=== PATIENT | male | born 1955 | race Hispanic/Latino ===

== ENCOUNTER → 2025-09-26 | Outpatient (CLI) | payer OTHER, MEDICARE ==
--- NOTE | 2025-09-26 16:32 | HMCIMG ---
STUDY: X-RAY OF THE ABDOMEN, 1 VIEW HISTORY: Diarrhea. TECHNIQUE: A single supine frontal view of the abdomen is submitted for interpretation. COMPARISON: None provided. FINDINGS: Bowel gas pattern: Non-specific, nonobstructive bowel gas pattern with fecal matter present throughout the large bowel. No abnormal bowel loop dilatation is described. Bones and joints: Mild degenerative changes are noted in the visualized spine. No acute osseous abnormality is identified on this limited abdominal view. Soft tissues: Visualized abdominal soft tissues are unremarkable within the limits of this examination. IMPRESSION: * Non-specific, nonobstructive bowel gas pattern with fecal loading in the large bowel, which may correlate with slowed colonic transit/constipation in the appropriate clinical context. Clinical management should be guided by symptoms and examination rather than radiographic findings alone. * Mild degenerative changes in the visualized spine. /Kenedy
== END | disposition home or self-care (01) ==
LOC: RAH 11:54
PROVIDERS: ATTEND Physician Assistant Medical
DX: R19.7 Diarrhea, unspecified (principal); M47.816 Spondylosis without myelopathy or radiculopathy, lumbar region
CPT/HCPCS: 74018